=== PATIENT | male | born 1985 | race Caucasian/White ===

== ENCOUNTER 2016-05-24 16:55 | Emergency (ER) | payer OTHER ==
[2016-05-24 18:30] VITALS: BP 134/64
[2016-05-24] MEDS ORDERED: Ketorolac INJ* 60 MG/2 ML VIAL IM ONE (18:43)
--- NOTE | 2016-05-24 18:52 | UC ---
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 unable to straighten up. pain along the low back on both sides. no fever, pain is constant, dull ache. - History of Current Complaint Chief Complaint: UCBackPain Stated Complaint: LOWER BACK PAIN Time Seen by Provider: 05/24/16 18:34 Hx Obtained From: Patient Onset/Duration: Sudden Onset, Lasting Days Timing: Constant Severity Initially: Moderate Severity Currently: Moderate Pain Intensity: 6 Pain Scale Used: 0-10 Numeric Back Pain: Is Discrete @ - low back over bilatera SI joints Character: Dull, Aching, Throbbing Aggravating: Movement, Lifting, Bending, Walking Alleviating: Rest, Position Associated Signs And Symptoms: Positive: Negative, Weakness - Risk Factors AAA Risk Factors: Negative TAD Risk Factors: Negative Cauda Equina Risk Factors: Negative Epidural Abscess Risk Factors: Negative - Allergies/Home Medications Allergies/Adverse Reactions: Allergies Allergy/AdvReac Type Severity Reaction Status Date / Time No Known Allergies Allergy Verified 05/24/16 18:25 PMH/Surg Hx/FS Hx/Imm Hx Previously Healthy: Yes - Surgical History Surgical History: None - Family History Known Family History: Positive: None - negative for HTN - Social History Alcohol Use: None Substance Use Type: None Smoking Status (MU): Never Smoked Tobacco Review of Systems Constitutional: Negative Skin: Negative Eyes: Negative ENT: Negative Respiratory: Negative Cardiovascular: Negative Gastrointestinal: Negative Genitourinary: Negative Motor: Negative Neurovascular: Negative Musculoskeletal: Arthralgia, Decreased ROM - jesse and legs, Myalgia Neurological: Negative Psychological: Negative All Other Systems Reviewed And Are Negative: Yes Physical Exam Triage Information Reviewed: Yes Appearance: Well-Appearing, Well-Nourished, Pain Distress Vital Signs: Initial Vital Signs Temp 98.8 F 05/24/16 18:25 Pulse 67 05/24/16 18:25 Resp 16 05/24/16 18:25 BP 134/64 05/24/16 18:25 Pulse Ox 100 05/24/16 18:25 Vital Signs Reviewed: Yes Eye Exam: Normal Eyes: Positive: Conjunctiva Clear ENT Exam: Normal ENT: Positive: Normal ENT inspection, Pharynx normal, TMs normal Dental Exam: Normal Neck exam: Normal Neck: Positive: Supple, Nontender, No Lymphadenopathy Respiratory Exam: Normal Respiratory: Positive: Chest non-tender, Lungs clear, Normal breath sounds Cardiovascular Exam: Normal Cardiovascular: Positive: RRR, No Murmur, Pulses Normal Abdominal Exam: Normal Abdomen Description: Positive: Nontender, No Organomegaly, Soft Bowel Sounds: Positive: Present Musculoskeletal: Positive: Strength Intact, No Edema, ROM Limited @ - lumbar flexsion and ext, hip ext Neurological Exam: Normal Neurological: Positive: Alert, Muscle Tone Normal Psychological Exam: Normal Skin Exam: Normal Back Pain Course/Dx - Course Course Of Treatment: history obtained, exam performed, medications reviewed, toradol given. educated on low back stretches and care. - Differential Dx/Diagnosis Differential Diagnosis/HQI/PQRI: Cauda Equina Syndrome, Herniated Disc, Strain, Sprain, Other - UTI, STD Provider Diagnoses: SI joint dysfunction. decreased ROM. back pain Discharge - Discharge Plan Condition: Stable Disposition: HOME Patient Education Materials: Sacroiliitis (ED) Additional Instructions: You received a Toradol shot today, do not take any more Ibuprofen or Aleve until 2 am. I have included a series of back exercises to increase your mobility and flexibility. Continue the use of anti inflammatory medication and heat the low back and quadriceps as tolerated. With proper stretching you will return to normal function. if symptoms persist, I have included a referral to physical therapy for assistance increasing flexibility.
== END 2016-05-24 19:17 | disposition home or self-care (01) ==
LOC: UCCORT 16:55
DX: M53.3 Sacrococcygeal disorders, not elsewhere classified (principal); M54.5 Low back pain
CPT/HCPCS: 96372; 99211; G0463; J1885

== ENCOUNTER 2017-09-20 20:03 | Emergency (ER) | payer SELFPAY ==
[2017-09-20 20:37] VITALS: BP 133/83
[2017-09-20] MEDS ORDERED: Ibuprofen TAB* 600 MG PO ONE (20:40)
--- NOTE | 2017-09-20 20:52 | UC ---
Upper Extremity HPI - HPI Summary HPI Summary: Patient is an otherwise healthy 31-year-old male presenting to the with left thumb injury. Unable to have full range of motion and not able to perform opposition exercises. Pain began approximately 1 hour ago when he actually hit it on a trailer. There is a small puncture wound. - History of Current Complaint Chief Complaint: UCUpperExtremity Stated Complaint: HAND INJURY Time Seen by Provider: 09/20/17 20:37 Hx Obtained From: Patient ?: No Onset/Duration: Sudden Onset Severity Initially: Moderate Severity Currently: Moderate Pain Intensity: 7 Pain Scale Used: 0-10 Numeric Location Of Pain: Is Discrete @ - Left thumb pain Aggravating Factor(s): Lifting, Flexion, Extension, Internal/External Rotation Alleviating Factor(s): Nothing Associated Signs And Symptoms: Negative: Swelling, Redness, Bruising, Numbness/ Tingling Related History: Dominant Hand Right - Risk Factors Non-Orthopedic Risk Factor: Negative DVT Risk Factors: Negative Septic Arthritis Risk Factor: Negative Compartment Syndrome Risk Factors: Pain - Allergies/Home Medications Allergies/Adverse Reactions: Allergies Allergy/AdvReac Type Severity Reaction Status Date / Time No Known Allergies Allergy Verified 09/20/17 20:32 Home Medications: Home Medications Esomeprazole Magnesium [Nexium 24Hr] 20 mg PO DAILY 09/20/17 [History Confirmed 09/20/17] PMH/Surg Hx/FS Hx/Imm Hx Previously Healthy: Yes - Surgical History Surgical History: None - Family History Known Family History: Positive: None - negative for HTN - Social History Occupation: Employed Full-time Lives: With Family Alcohol Use: None Substance Use Type: None Smoking Status (MU): Never Smoked Tobacco - Immunization History Most Recent Tetanus Shot: within 5 years Review of Systems Constitutional: Negative Skin: Other - Small puncture wound to the dorsum of the left thumb Eyes: Negative ENT: Negative Respiratory: Negative Cardiovascular: Negative Motor: Decreased ROM Neurovascular: Decreased Sensation Musculoskeletal: Arthralgia - left thumb pain Neurological: Negative Is Patient Immunocompromised?: No All Other Systems Reviewed And Are Negative: Yes Physical Exam Triage Information Reviewed: Yes Appearance: Well-Appearing, Well-Nourished Vital Signs: Initial Vital Signs Temp 98.5 F 09/20/17 20:33 Pulse 74 09/20/17 20:33 Resp 18 09/20/17 20:33 BP 133/83 09/20/17 20:33 Pulse Ox 97 09/20/17 20:33 Vital Signs Reviewed: Yes Eye Exam: Normal Neck exam: Normal Neck: Positive: Supple Respiratory Exam: Normal Respiratory: Positive: Chest non-tender, Lungs clear Musculoskeletal: Positive: ROM Limited @ - opposition Neurological: Positive: Alert Psychological Exam: Normal - While Psychological: Positive: Normal Response To Family Skin Exam: Normal Upper Extremity Course/Dx - Course Course Of Treatment: During the course of treatment, the patient is evaluated for left thumb pain after jamming it into a trailer. There is a small puncture wound. He denies any other pain or symptoms. Unable to perform opposition exercises. Range of motion is limited due to pain. There is no ecchymosis or swelling to the thumb. X-ray obtained. No fracture visualized. Band-Aid applied and Eder wrapped. - Differential Dx/Diagnosis Provider Diagnoses: Contusion Discharge - Sign-Out/Discharge Documenting (check all that apply): Discharge/Admit/Transfer - Discharge Plan Condition: Stable Disposition: HOME Patient Education Materials: Contusion in Adults (ED) Referrals: RADHA Albarran [Primary Care Provider] - Additional Instructions: Keep eder wrap on for comfort - Billing Disposition and Condition Condition: STABLE Disposition: HOME
--- NOTE | 2017-09-20 21:23 | RAD ---
Indication: Left thumb pain. 3 views of left thumb demonstrates no fracture or dislocation. No other bone or joint abnormality is identified. IMPRESSION: No fracture of the left thumb is noted.
== END 2017-09-20 21:30 | disposition home or self-care (01) ==
LOC: UCEAST 20:03
DX: S60.012A Contusion of left thumb without damage to nail, initial encounter (principal); W23.0XXA Caught, crushed, jammed, or pinched between moving objects, initial encounter; Y92.9 Unspecified place or not applicable
CPT/HCPCS: 99211; A9270-GY; G0463

== ENCOUNTER 2018-12-07 16:03 | Emergency (ER) | payer SELFPAY ==
[2018-12-07] MEDS ORDERED: NS 0.9% 1000 ML** 1,000 ML IV ONE (16:16)
[2018-12-07 17:02] LABS: ABS Basophils 0.1 10^3/ul (0-0.2); ABS Lymphocytes 1.8 10^3/ul (1.0-4.8); ABS Neutrophils 10.6 10^3/ul (1.5-7.7); Eosinophil % 0.3 %; Hematocrit 44 % (42-52); Lymphocyte % 13.1 %; Mean Corpuscular HGB Conc 34 g/dL (31-36); Mean Corpuscular Hemoglobin 30 pg (27-31); Mean Corpuscular Volume 88 fL (80-94); Mean Platelet Volume 7.7 fL (7.4-10.4); Platelet Count 298 10^3/uL (150-450); Red Blood Count 4.95 10^6 /uL (4.18-5.48); Red Cell Distribution Width 13 % (10-15); White Blood Count 13.4 10^3/uL (3.5-10.8)
--- NOTE | 2018-12-07 17:05 | ED ---
HPI Chest Pain - HPI Summary HPI Summary: This patient is a 33-year-old male who presents to the ED with request for fluids due to dehydration. He states he for the last 3 days he has been working out in the heat and not drinking any water. He has drunk a few teas, but has not eaten or drank much and he states over the past day he began to feel tingling into his fingertips and feeling as though he was going to have a syncopal episode. He states he has been overheated. He was endorsing shortness of breath and some chest pain at the time. EMS was called and on the administration of fluids, he states all symptoms dissipated. He does not have cardiac disease. He takes no medications. - History of Current Complaint Chief Complaint: EDExposureHeatCold Time Seen by Provider: 12/07/18 16:06 Hx Obtained From: Patient Onset/Duration: Started Hours Ago Timing: Constant Initial Severity: Moderate Current Severity: Moderate Pain Intensity: 0 Pain Scale Used: 0-10 Numeric Chest Pain Radiates: No Aggravating Factor(s): Nothing Alleviating Factor(s): Nothing Associated Signs and Symptoms: Positive: Negative - Risk Factors Pulmonary Embolism Risk Factors: Negative TAD Risk Factors: Negative - Allergy/Home Medications Allergies/Adverse Reactions: Allergies Allergy/AdvReac Type Severity Reaction Status Date / Time No Known Allergies Allergy Verified 09/20/17 20:32 PMH/Surg Hx/FS Hx/Imm Hx Previously Healthy: Yes - Immunization History Hx Pertussis Vaccination: No Immunizations Up to Date: Yes Infectious Disease History: No Infectious Disease History: Denies: Traveled Outside the [place] in Last 30 Days - Family History Known Family History: Positive: None - negative for HTN - Social History Occupation: Employed Full-time Lives: With Family Alcohol Use: None Hx Substance Use: No Substance Use Type: Reports: None Hx Tobacco Use: No Smoking Status (MU): Never Smoked Tobacco Review of Systems Positive: Fatigue, Skin Diaphoresis. Negative: Fever, Chills Positive: Chest Pain. Negative: Palpitations Positive: Shortness Of Breath. Negative: Cough Genitourinary: Negative Positive: no symptoms reported, see HPI Negative: Arthralgia, Myalgia Skin: Negative Positive: Weakness, Paresthesia All Other Systems Reviewed And Are Negative: Yes Physical Exam Triage Information Reviewed: Yes Vital Signs On Initial Exam: Initial Vitals Temp Pulse Resp BP Pulse Ox 98.5 F 66 12 159/94 98 12/07/18 16:04 12/07/18 16:04 12/07/18 16:04 12/07/18 16:04 12/07/18 16:04 Vital Signs Reviewed: Yes Appearance: Positive: Well-Appearing, Well-Nourished Skin: Positive: Dry Head/Face: Positive: Normal Head/Face Inspection Eyes: Positive: EOMI, [place] Neck: Positive: Supple, No Lymphadenopathy Respiratory/Lung Sounds: Positive: Clear to Auscultation, Breath Sounds Present Cardiovascular: Positive: RRR, Pulses are Symmetrical in both Upper and Lower Extremities Musculoskeletal: Positive: Normal, Strength/ROM Intact Neurological: Positive: Speech Normal Psychiatric: Positive: Affect/Mood Appropriate AVPU Assessment: Alert Diagnostics - Vital Signs Vital Signs Temp Pulse Resp BP Pulse Ox 12/07/18 16:36 80 19 149/88 99 12/07/18 16:06 64 10 159/94 98 12/07/18 16:05 77 20 100 12/07/18 16:04 98.5 F 66 12 159/94 98 - Laboratory Result Diagrams: 12/07/18 16:50 12/07/18 16:50 Lab Statement: Any lab studies that have been ordered have been reviewed, and results considered in the medical decision making process. Chest Pain Course/Dx - Course Course Of Treatment: During the course of treatment, the patient is evaluated for symptoms of dehydration including chest pain,'s of breath, tingling into the bilateral hands, feeling as though he was going to have a syncopal episode and weakness throughout. He states the symptoms have been worsening over the past 2 days as he has not been drinking much. He denies cardiac disease. Labs obtained included troponin which is 0.00. EKG shows normal sinus rhythm. Patient appears well on arrival, however he has dry mucous membranes and does appear to be dehydrated. He was given a liter fluids prior to arrival in 1 L fluids while here in the ED. Other labs unremarkable. Patient states he would like to be discharged this time and offers no other complaints. He is DC'd with dehydration. - Chest Pain Differential Diagnosis/HQI/PQRI: Other: - anxiety, chest pain - Diagnoses Provider Diagnoses: Dehydration Discharge - Sign-Out/Discharge Documenting (check all that apply): Patient Departure Patient Received Moderate/Deep Sedation with Procedure: No - Discharge Plan Condition: Critical Disposition: HOME Patient Education Materials: Dehydration (ED) Referrals: RADHA Albarran [, APPLICATION, OTHER] - Additional Instructions: Drink plenty of fluids including gatorade - Eat Stay out of the sun if possible Drink at least 8 bottles of water daily if outside - Billing Disposition and Condition Condition: CRITICAL Disposition: Home
[2018-12-07 17:17] LABS: Albumin 4.6 g/dL (3.2-5.2); Albumin/Globulin Ratio 1.5 (1-3); BUN/Creatinine Ratio 11.5 (8-20); Calcium 9.2 mg/dL (8.6-10.3); EGFR African American 120.8 (>60); EGFR Non-African American 99.9 (>60); Globulin 3.1 g/dL (2-4); Potassium 3.6 mmol/L (3.5-5.0); Total Bilirubin 1.1 mg/dL (0.2-1.0); Total Protein 7.7 g/dL (6.4-8.9)
[2018-12-07 18:01] VITALS: BP 172/87
== END 2018-12-07 18:02 | disposition home or self-care (01) ==
LOC: ED 16:03
DX: E86.0 Dehydration (principal)
CPT/HCPCS: 36415; 80053; 84484; 85025; 93005; 96360; 99283

== ENCOUNTER 2019-07-09 09:15 | Emergency (ER) | payer SELFPAY ==
[2019-07-09 10:25] VITALS: BP 141/83
--- NOTE | 2019-07-09 11:06 | UC ---
Upper Extremity HPI - HPI Summary HPI Summary: right arm / bicep pain x 3 to 4 weeks pain is 7 out 10 , worse with lifting, moving the right arm nothing makes it better, injury of the right shoulder / right biceps as he was throwing baseball severe weakness of the right arm - History of Current Complaint Chief Complaint: UCUpperExtremity Stated Complaint: RIGHT SHOULDER PAIN Time Seen by Provider: 07/09/19 10:47 Hx Obtained From: Patient Onset/Duration: Sudden Onset, Lasting Weeks - 3, Still Present Severity Initially: Moderate Severity Currently: Moderate Pain Intensity: 4 Pain Scale Used: 0-10 Numeric Location Of Pain: Is Discrete @ - right arm / biceps/ shoulder Character: Aching Aggravating Factor(s): Movement, Lifting, Flexion, Extension Alleviating Factor(s): Nothing Associated Signs And Symptoms: Positive: Weakness. Negative: Swelling, Redness , Bruising, Fever, Numbness/Tingling - Allergies/Home Medications Allergies/Adverse Reactions: Allergies Allergy/AdvReac Type Severity Reaction Status Date / Time No Known Allergies Allergy Verified 07/09/19 10:18 Home Medications: Home Medications Esomeprazole Magnesium [Nexium 24Hr] 20 mg PO DAILY 09/20/17 [History Confirmed 07/09/19] PMH/Surg Hx/FS Hx/Imm Hx Previously Healthy: Yes - Surgical History Surgical History: None - Family History Known Family History: Positive: None - negative for HTN, Non-Contributory - Social History Alcohol Use: Weekly Substance Use Type: None Smoking Status (MU): Never Smoked Tobacco - Immunization History Most Recent Tetanus Shot: within 5 years Review of Systems All Other Systems Reviewed And Are Negative: Yes Is Patient Immunocompromised?: No Physical Exam Triage Information Reviewed: Yes Appearance: Well-Appearing, No Pain Distress, Well-Nourished Vital Signs: Initial Vital Signs Temp 97.9 F 07/09/19 10:19 Pulse 70 07/09/19 10:19 Resp 16 07/09/19 10:19 BP 141/83 07/09/19 10:19 Pulse Ox 100 07/09/19 10:19 Vital Signs Reviewed: Yes Eye Exam: Normal Eyes: Positive: Conjunctiva Clear ENT: Positive: Normal ENT inspection, Hearing grossly normal, Pharynx normal Neck: Positive: Supple Respiratory: Positive: Chest non-tender, Lungs clear, Normal breath sounds Cardiovascular: Positive: RRR, No Murmur, Pulses Normal Musculoskeletal: Positive: Other: - right arm: deffuse tenderness of the right biceps , pain with flexion and extension . weakness on flexion and supination Upper Extremity Course/Dx - Differential Dx/Diagnosis Provider Diagnosis: Rupture of right biceps tendon Discharge ED - Sign-Out/Discharge Documenting (check all that apply): Patient Departure All imaging exams completed and their final reports reviewed: No Studies - Discharge Plan Condition: Stable Disposition: HOME Patient Education Materials: Tendon Rupture (ED) Referrals: Ludwin Olsen MD [Medical Doctor] - As Soon As Possible Todd Ruiz PA [Primary Care Provider] - Additional Instructions: concern about right biceps tendon rupture - Billing Disposition and Condition Condition: STABLE Disposition: Home
== END 2019-07-09 10:58 | disposition home or self-care (01) ==
LOC: UCCORT 09:15
DX: S46.211A Strain of muscle, fascia and tendon of other parts of biceps, right arm, initial encounter (principal); X58.XXXA Exposure to other specified factors, initial encounter; Y93.64 Activity, baseball; Y92.9 Unspecified place or not applicable
CPT/HCPCS: 99211; G0463